=== PATIENT | female | born 1990 | race Two or more races ===

== ENCOUNTER 2024-08-06 12:59 | Outpatient (CLI) | payer OTHER | END 2024-08-06 13:00 | disposition home or self-care (01) | LOC: PRENATAL 12:59 | PROVIDERS: ATTEND Obstetrics & Gynecology Maternal & Fetal Medicine | DX: O44.00 Complete placenta previa NOS or without hemorrhage, unspecified trimester (principal); Z3A.25 25 weeks gestation of pregnancy ==

== ENCOUNTER 2024-09-21 09:32 | Outpatient (CLI) | payer OTHER | END 2024-09-21 09:35 | disposition home or self-care (01) | LOC: PRENATAL 09:32 | PROVIDERS: ATTEND Obstetrics & Gynecology Maternal & Fetal Medicine | DX: O26.849 Uterine size-date discrepancy, unspecified trimester (principal); O36.8199 Decreased fetal movements, unspecified trimester, other fetus; O34.219 Maternal care for unspecified type scar from previous cesarean delivery; O24.419 Gestational diabetes mellitus in pregnancy, unspecified control; Z3A.32 32 weeks gestation of pregnancy ==

== ENCOUNTER → 2024-10-20 14:57 | Outpatient (CLI) | payer OTHER | END | disposition home or self-care (01) | LOC: PRENATAL 14:57 | PROVIDERS: ATTEND Obstetrics & Gynecology Maternal & Fetal Medicine | DX: O26.849 Uterine size-date discrepancy, unspecified trimester (principal); O36.8199 Decreased fetal movements, unspecified trimester, other fetus; O34.219 Maternal care for unspecified type scar from previous cesarean delivery; O24.419 Gestational diabetes mellitus in pregnancy, unspecified control; Z3A.35 35 weeks gestation of pregnancy ==

== ENCOUNTER 2024-11-05 09:08 | Inpatient (IN) | payer OTHER ==
[~2024-11-05] VITALS: Ht 160 cm; Wt 2.7 kg
[2024-11-05 08:11] VITALS: BP 115/76
[2024-11-05] MEDS ORDERED: RINGERS SOLUTION,LACTATED 1,000 ML IV SCH ×2 (09:45→13:30)
[2024-11-05 09:50] LABS: HEMATOCRIT 34.2 % (36.0-45.00); HEMOGLOBIN 11.8 g/dL (12.0-15.00); MEAN CELL VOLUME 97.3 fL (80.00-100.00); MEAN CORPUSCULAR HEMOGLOBIN 33.5 pg (27.00-32.0); MEAN CORPUSCULAR HGB CONC 34.4 g/dl (32.0-36.0); PLATELET COUNT 185 K/uL (150-450); RED BLOOD COUNT 3.51 M/uL (4.00-6.00); RED CELL DISTRIBUTION WIDTH 13.6 % (11.5-14.5)
[2024-11-05 09:51] LABS: URINE APPEARANCE Cloudy; URINE BILIRRUBIN Negative (NEGATIVE); URINE BLOOD Negative; URINE COLOR Yellow; URINE GLUCOSE Negative (NEGATIVE); URINE KETONE Trace (NEGATIVE); URINE LEUKOCYTE Negative; URINE NITRATE Negative; URINE PROTEIN Trace (NEGATIVE); URINE UROBILINOGEN 0.2 E.U./dl
[2024-11-05 09:55] LABS: URINE BACTERIA 2054.8 uL (0.0-1933); URINE EPITHELIAL CELLS 78.6 uL (0.0-38.8); URINE RBC 6.4 uL (0.0-20.8); URINE WBC 16.3 uL (0.0-23.2)
[2024-11-05] MEDS ORDERED: CEFAZOLIN SODIUM 1,000 MG VIAL IV SCH (10:00)
[2024-11-05] MEDS ORDERED: PRENATA CHEWAB1 EACH PO (10:21)
[2024-11-05 10:25] LABS: INR 0.94; PARTIAL THROMBOPLASTIN TIME 24.7 SECONDS (22.0-34.0); PROTHROMBIN TIME 10.3 SECONDS (9.0-11.5)
[2024-11-05 10:31] LABS: ALBUMIN 2.7 gm/dL (3.4-5.0); BILIRUBIN TOTAL 0.32 mg/dL (0.3-1.2); CALCIUM 8.6 mg/dL (8.5-10.1); CREATININE SERUM 0.52 mg/dL (0.55-1.02); GFR 136.65; GLOBULINA 3.1 G/DL (2.4-3.5); POTASSIUM 3.71 mEq/L (3.5-5.1); TOTAL PROTEIN 5.8 gm/dL (6.4-8.2)
[2024-11-05 11:48] VITALS: BP 121/73
[2024-11-05] MEDS ORDERED: ERYTHROMYCIN BASE OPHT 1GM EACH TUBE OP ONE ×2 (11:54→13:30)
[2024-11-05] MEDS ORDERED: OXYTOCIN 10 UNITS/ML VIAL ONE ×2 (11:54→16:05)
[2024-11-05] MEDS ORDERED: OXYTOCIN 1,000 ML IV SCH (13:30)
[2024-11-05] MEDS ORDERED: ONDANSETRON HCL 2 MG/ML VIAL IV PRN (13:30)
[2024-11-05] MEDS ORDERED: MORPHINE SULFATE 4 MG/ML CARTRIDGE IV PRN (13:30)
[2024-11-05] MEDS ORDERED: CHLORHEXIDINE GLUCONATE 120 ML BOTTLE TP NR (13:30)
[2024-11-05] MEDS ORDERED: ACETAMINOPHEN 325 MG TABLET PO SCH (14:00)
[2024-11-05] MEDS ORDERED: MORPHINE SULFATE 4 MG/ML VIAL IV ONE (14:10)
[2024-11-05 14:56] LABS: HEMATOCRIT 36.5 % (36.0-45.00); HEMOGLOBIN 12.4 g/dL (12.0-15.00); MEAN CORPUSCULAR HEMOGLOBIN 33.4 pg (27.00-32.0); MEAN CORPUSCULAR HGB CONC 34.1 g/dl (32.0-36.0); PLATELET COUNT 175 K/uL (150-450); RED BLOOD COUNT 3.73 M/uL (4.00-6.00); RED CELL DISTRIBUTION WIDTH 13.7 % (11.5-14.5)
[2024-11-05 17:12] VITALS: BP 126/79
[2024-11-05] MEDS ORDERED: SIMETHICONE 125 MG CAPSULE PO SCH (18:00)
[2024-11-06 01:00] VITALS: BP 114/66
[2024-11-06 08:00] VITALS: BP 114/72; BP 115/79
[2024-11-06] MEDS ORDERED: ACETAMINOPHEN WITH CODEINE 1 UDTAB TABLET PO PRN (12:00)
[2024-11-06] MEDS ORDERED: ACETAMINOPHEN 325 MG TABLET PO PRN (12:10)
[2024-11-06] MEDS ORDERED: NAPROXEN 500 MG TABLET PO PRN (12:15)
[2024-11-06] MEDS ORDERED: DOCUSATE SODIUM 100MG CAP PO SCH (17:00)
[2024-11-06 17:17] VITALS: BP 114/72
[2024-11-06 20:00] VITALS: BP 122/82
[2024-11-07] VITALS: BP 109/73
[2024-11-07 05:00] VITALS: BP 108/70
[2024-11-07 08:30] VITALS: BP 121/66
[2024-11-07 16:20] VITALS: BP 117/65
[2024-11-08 01:00] VITALS: BP 109/68
[2024-11-08 08:00] VITALS: BP 120/82
[2024-11-08] MEDS ORDERED: ACETAMINOPHEN-1 EAC2 PO (08:07)
[2024-11-08] MEDS ORDERED: NAPR500T14 PO (08:08)
[2024-11-08] MEDS ORDERED: COLACE100 MG PO (08:08)
== END 2024-11-08 10:58 | disposition home or self-care (01) | DRG 788 ==
LOC: LDR 09:08 → OB/GYN 09:08
PROVIDERS: ADMIT Obstetrics & Gynecology; ATTEND Obstetrics & Gynecology
PROC: 4A1HXCZ Monitoring of Products of Conception, Cardiac Rate, External Approach (ICD-10-PCS; 2024-11-05)
PROC: 10D00Z1 Extraction of Products of Conception, Low, Open Approach (ICD-10-PCS; principal; 2024-11-05 12:00)
DX: O34.211 Maternal care for low transverse scar from previous cesarean delivery (principal); Z3A.38 38 weeks gestation of pregnancy; Z37.0 Single live birth